=== PATIENT | male | born 1975 | race Caucasian/White ===

== ENCOUNTER 2021-01-27 12:04 | Day surgery (SDC) | payer OTHER ==
[2021-01-27] MEDS ORDERED: Sodium Chloride 0.9(Preservative Free) 10 ML IJ ONE (12:05)
[2021-01-27] MEDS ORDERED: Depo-Medrol 40 MG/ML IM ONE (12:05)
[2021-01-27] MEDS ORDERED: DIPRIVAN 200 MG/20 ML IV ONE ×2 (14:04→14:08)
--- NOTE | 2021-01-27 14:49 | XRAY ---
42 seconds fluoroscopy time in surgery for left L4-S1 transforaminal GALO.
--- NOTE | 2021-01-27 14:49 | XRAY ---
Indication: Left L4-S1 transforaminal GALO. Intraoperative fluoroscopy provided for 42 seconds. Single digital spot image submitted for interpretation demonstrates posterior needle tips projecting over the expected left L4 and L5 nerve roots. Small amount of contrast injected for needle tip placement. Correlate with intraoperative findings/report. Incidental partially visualized L5-S1 posterior fusion hardware/intervertebral spacers.
[2021-01-27] MEDS ORDERED: Lactated Ringers 1,000 ML IV ONE (16:05)
== END 2021-01-27 14:35 | disposition home or self-care (01) ==
LOC: SDC-PAIN 12:04
PROVIDERS: ATTEND Psychiatry & Neurology Pain Medicine
DX: M54.16 Radiculopathy, lumbar region (principal); K21.9 Gastro-esophageal reflux disease without esophagitis; F41.9 Anxiety disorder, unspecified; F43.10 Post-traumatic stress disorder, unspecified; E78.00 Pure hypercholesterolemia, unspecified; K31.84 Gastroparesis; M19.90 Unspecified osteoarthritis, unspecified site; Z79.899 Other long term (current) drug therapy
CPT/HCPCS: 72100; 77003; J1030; J2704

== ENCOUNTER 2021-04-14 15:51 | Day surgery (SDC) | payer OTHER ==
[2021-04-14] MEDS ORDERED: Sodium Chloride 0.9(Preservative Free) 10 ML IJ ONE (15:52)
[2021-04-14] MEDS ORDERED: Depo-Medrol 40 MG/ML IM ONE (15:52)
[2021-04-14] MEDS ORDERED: Lactated Ringers 1,000 ML IV ONE (15:59)
[2021-04-14] MEDS ORDERED: DIPRIVAN 200 MG/20 ML IV ONE ×2 (17:30→17:37)
--- NOTE | 2021-04-14 20:39 | XRAY ---
Indication: Right L3-L5 transforaminal GALO. Intraoperative fluoroscopy provided for 26 seconds. 3 digital spot image submitted for interpretation demonstrates posterior needle tips projecting over the expected right L3 and L4 nerve roots. Small amount of contrast injected for needle tip placement. Correlate with intraoperative findings/report. Incidental partially visualized L4-S1 posterior fusion hardware/intervertebral spacers.
--- NOTE | 2021-04-15 08:43 | XRAY ---
51 seconds fluoroscopy time in surgery for right L3-L5 transforaminal GALO.
== END 2021-04-14 17:58 | disposition home or self-care (01) ==
LOC: SDC-PAIN 15:51
PROVIDERS: ATTEND Psychiatry & Neurology Pain Medicine
DX: M54.16 Radiculopathy, lumbar region (principal); Z79.899 Other long term (current) drug therapy
CPT/HCPCS: 64483; 64484; 72100; 77003; J1030; J2704; Q9966

== ENCOUNTER 2021-11-10 08:05 | Day surgery (SDC) | payer OTHER | END 2021-11-10 08:15 | disposition home or self-care (01) | LOC: SDC-PAIN 08:05 | PROVIDERS: ATTEND Psychiatry & Neurology Pain Medicine | DX: Z53.8 Procedure and treatment not carried out for other reasons (principal) ==

== ENCOUNTER 2021-12-22 07:47 | Day surgery (SDC) | payer OTHER ==
[2021-12-22] MEDS ORDERED: LIDOCAINE HCL 2% 100 MG/5 ML IJ ONE (07:48)
[2021-12-22] MEDS ORDERED: Depo-Medrol 40 MG/ML IM ONE (07:48)
[2021-12-22] MEDS ORDERED: Lactated Ringers 1,000 ML IV ONE (09:06)
[2021-12-22] MEDS ORDERED: DIPRIVAN 200 MG/20 ML IV ONE (10:02)
[2021-12-22] MEDS ORDERED: Xylocaine-Mpf 2% 5 Ml Vial ONE (10:04)
--- NOTE | 2021-12-22 12:09 | XRAY ---
Indication: Left L1-L4 MBB. Intraoperative fluoroscopy provided for 21 seconds. 2 digital spot image submitted for interpretation demonstrates posterior needle tips projecting over the expected left L1-L4 nerve roots. Correlate with intraoperative findings/report. Incidental incompletely visualized bilateral L4-S1 posterior fusion hardware
--- NOTE | 2021-12-22 12:13 | XRAY ---
21 seconds fluoroscopy time in surgery for left L1-L4 MBB.
== END 2021-12-22 10:26 | disposition home or self-care (01) ==
LOC: SDC-PAIN 07:47
PROVIDERS: ATTEND Psychiatry & Neurology Pain Medicine
DX: M47.816 Spondylosis without myelopathy or radiculopathy, lumbar region (principal); Z79.899 Other long term (current) drug therapy
CPT/HCPCS: 64493; 64494; 64495; 72020; 77002; 82947; J1030; J2704

== ENCOUNTER 2022-04-06 09:44 | Day surgery (SDC) | payer OTHER ==
[2022-04-06] MEDS ORDERED: LIDOCAINE HCL 2% 100 MG/5 ML IJ ONE (09:45)
[2022-04-06] MEDS ORDERED: Lactated Ringers 1,000 ML IV ONE ×2 (11:47→12:25)
--- NOTE | 2022-04-06 12:23 | XRAY ---
Indication: Right C2-C5 MBB. Intraoperative fluoroscopy provided for 37 seconds. 2 digital spot images submitted for interpretation demonstrate posterior needle tips projecting over the expected right C2-C5 nerve roots. Correlate with intraoperative findings/report.
--- NOTE | 2022-04-06 15:26 | XRAY ---
37 seconds fluoroscopy time in surgery for right C2-C5 MBB.
== END 2022-04-06 12:03 | disposition home or self-care (01) ==
LOC: SDC-PAIN 09:44
PROVIDERS: ATTEND Psychiatry & Neurology Pain Medicine
DX: M47.812 Spondylosis without myelopathy or radiculopathy, cervical region (principal); Z79.899 Other long term (current) drug therapy
CPT/HCPCS: 64490; 64491; 64492; 72040; 77002; 82947

== ENCOUNTER 2022-07-27 08:48 | Day surgery (SDC) | payer OTHER ==
[2022-07-27] MEDS ORDERED: Lactated Ringers 1,000 ML IV ONE (09:48)
[2022-07-27] MEDS ORDERED: DIPRIVAN 200 MG/20 ML IV ONE ×2 (10:22→10:34)
--- NOTE | 2022-07-27 12:18 | XRAY ---
Indication: Right C2-C5 MBB. Intraoperative fluoroscopy provided for 28 seconds. 3 digital spot images submitted for interpretation demonstrates posterior needle tips projecting over the right C2-C5 nerve roots. Correlate with intraoperative findings/report.
--- NOTE | 2022-07-27 13:36 | XRAY ---
28 seconds fluoroscopy time in surgery for right C2-C5 MBB.
== END 2022-07-27 11:10 | disposition home or self-care (01) ==
LOC: SDC-PAIN 08:48
PROVIDERS: ATTEND Psychiatry & Neurology Pain Medicine
DX: M47.812 Spondylosis without myelopathy or radiculopathy, cervical region (principal); Z79.899 Other long term (current) drug therapy
CPT/HCPCS: 64490; 64491; 64492; 72040; 77002; 82947; J2704

== ENCOUNTER 2022-09-07 08:12 | Day surgery (SDC) | payer OTHER ==
[2022-09-07] MEDS ORDERED: BUPIVACAINE 0.5% VIAL IJ ONE (08:13)
[2022-09-07] MEDS ORDERED: LIDOCAINE HCL 1% 50 MG/5 ML VL PF IJ ONE (08:13)
[2022-09-07] MEDS ORDERED: Decadron 4 MG INJ IJ ONE (08:13)
[2022-09-07] MEDS ORDERED: DIPRIVAN 200 MG/20 ML IV ONE ×2 (09:45→09:47)
[2022-09-07] MEDS ORDERED: Lactated Ringers 1,000 ML IV ONE (10:23)
--- NOTE | 2022-09-07 10:52 | XRAY ---
Indication: Right C2-C5 RFA. Intraoperative fluoroscopy provided for 38 seconds. 5 digital spot image submitted for interpretation demonstrates posterior needle tips projecting over the expected right C2-C5 nerve roots. Correlate with intraoperative findings/report.
--- NOTE | 2022-09-07 12:49 | XRAY ---
38 seconds fluoroscopy time in surgery for right C2-C5 RFA.
== END 2022-09-07 10:24 | disposition home or self-care (01) ==
LOC: SDC-PAIN 08:12
PROVIDERS: ATTEND Psychiatry & Neurology Pain Medicine
DX: M47.812 Spondylosis without myelopathy or radiculopathy, cervical region (principal); Z79.899 Other long term (current) drug therapy
CPT/HCPCS: 64633; 64634; 72040; 77002; 82947; J1100; J2001; J2704